=== PATIENT | male | born 1970 | race Caucasian/White ===

== ENCOUNTER 2019-10-19 06:05 | Day surgery (SDC) | payer OTHER ==
[2019-10-10 09:52] VITALS: BMI 33.1
[2019-10-19] MEDS ORDERED: oxyCODONE HCL 10 MG SUSTAINED ACTING TABLET PO ONE (06:25)
[2019-10-19] MEDS ORDERED: CEFAZOLIN 2 GM in DEXTROSE 5%-WATER - 50 ML IVPB ONE (06:25)
[2019-10-19] MEDS ORDERED: TRANEXAMIC ACID 1000 MG/10 ML VIAL IVPUSH ONE ×2 (06:25→11:55)
[2019-10-19] MEDS ORDERED: BUPIVICAINE 0.25%/MORPH PF/KETOROLAC - 51ML DISP.SYRINGE IA ONE ×3 (06:25→11:56)
[2019-10-19] MEDS ORDERED: CELECOXIB 200 MG CAPSULE PO ONE (06:25)
[2019-10-19] MEDS ORDERED: GABAPENTIN 300 MG CAPSULE PO ONE (06:25)
[2019-10-19] MEDS ORDERED: PANTOPRAZOLE 40 MG TABLET PO ONE (06:30)
[2019-10-19] MEDS ORDERED: MIDAZOLAM HCL 2 MG/2 ML SINGLE DOSE VIAL ONE ×2 (06:53→08:39)
[2019-10-19] MEDS ORDERED: BUPIVACAINE HCL/PF 0.5% (5 MG/ML) 30 ML VIAL IJ ONE (06:53)
[2019-10-19] MEDS ORDERED: PROPOFOL 20 ML ONE ×5 (07:09→11:40)
[2019-10-19] MEDS ORDERED: SUCCINYLCHOLINE CHLORIDE 200 MG/10 ML SYRINGE ONE (07:10)
[2019-10-19] MEDS ORDERED: TRANEXAMIC ACID 1000 MG/10 ML VIAL ONE (07:17)
[2019-10-19] MEDS ORDERED: ceFAZolin SODIUM 1 GM VIAL ONE ×2 (07:17→11:12)
[2019-10-19] MEDS ORDERED: VANCOMYCIN 1,000 MG VIAL (RESTRICTED TO ID ONLY) ONE (07:17)
--- NOTE | 2019-10-19 07:22 | HP ---
Admitting History and Physical - Admission Chief Complaint: right knee osteoarthritis x years History of Present Illness: 48 year old male presents in regard to their right knee. Long-standing history of right knee osteoarthritis. Patient complains of pain - which he locates medially, limited range of motion, difficulty ambulating, and difficulty with activities of daily living. Patient has failed conservative treatment options including PO medications, activity modification, injections, and exercise programs. Radiographs revealed severe osteoarthritis of the right knee joint, along the medial compartment, with good preservation of the lateral and patellofemoral compartments. As the patient has failed all conservative treatment measures, the patient chose to proceed with surgical intervention, right partial knee medial compartment arthroplasty, MAKOplasty. History Source: Patient - Past Medical History [employer] TECHNICIAN: Yes: Migraine (Ocular) Gastrointestinal: Yes: GERD, Peptic Ulcer Disease Psych: Yes: Anxiety Musculoskeletal: Yes: Osteoarthritis - Past Surgical History Additional Past Surgical History: gastric bypass ([place]) 2003 gastroscopy 03/09/2014 left knee arthroscopy 10/16/2015 - Smoking History Smoking history: Never smoked Have you smoked in the past 12 months: No Home Medications - Allergies Allergies/Adverse Reactions: Allergies Allergy/AdvReac Type Severity Reaction Status Date / Time shrimp Allergy Severe Swelling Verified 10/10/19 09:35 - Home Medications Home Medications: Ambulatory Orders Desvenlafaxine Succinate [Pristiq] 50 mg PO DAILY 10/10/19 Diclofenac Sodium 75 mg PO BID 10/10/19 Melatonin 5 mg PO HS 10/10/19 clonazePAM [Klonopin -] 0.5 mg PO HS 10/10/19 Review of Systems - Review of Systems Musculoskeletal: reports: Decreased ROM (right knee), Joint Pain (right knee), Joint Swelling (right knee) Physical Examination Vital Signs: Vital Signs Temperature 98.2 F 10/19/19 06:33 Pulse Rate 80 10/19/19 06:33 Respiratory Rate 18 10/19/19 06:33 Blood Pressure 146/82 10/19/19 06:33 O2 Sat by Pulse Oximetry (%) 98 10/19/19 06:33 Constitutional: Yes: Well Nourished, No Distress Eyes: Yes: Conjunctiva Clear HENT: Yes: Atraumatic Neck: Yes: Supple Cardiovascular: Yes: Regular Rate and Rhythm Respiratory: Yes: Regular Gastrointestinal: Yes: Soft ...Rectal Exam: Yes: Deferred Musculoskeletal: Yes: Joint Stiffness (right), Joint Swelling (right) Assessment/Plan 48 year old male presents in regard to their right knee. Long-standing history of right knee osteoarthritis. Patient complains of pain - which he locates medially, limited range of motion, difficulty ambulating, and difficulty with activities of daily living. Patient has failed conservative treatment options including PO medications, activity modification, injections, and exercise programs. Radiographs revealed severe osteoarthritis of the right knee joint, along the medial compartment, with good preservation of the lateral and patellofemoral compartments. As the patient has failed all conservative treatment measures, the patient chose to proceed with surgical intervention, right partial knee medial compartment arthroplasty, MAKOplasty. Pros, cons, risks, benefits, and alternatives of a right partial knee medial compartment arthroplasty MAKOplasty were discussed with the patient at length. Patient confirms their understanding and consents to proceed with a right partial knee medial compartment arthroplasty MAKOplasty.
[2019-10-19] MEDS ORDERED: VANCOMYCIN 1,000 MG VIAL (RESTRICTED TO ID ONLY) IVPB ONE (11:42)
[2019-10-19] MEDS ORDERED: ONDANSETRON 4 MG/2 ML VIAL IVPUSH PRN ×2 (12:31→12:42)
[2019-10-19] MEDS ORDERED: oxyCODONE HCL 5 MG TABLET PO PRN (12:31)
[2019-10-19] MEDS ORDERED: ACETAMINOPHEN 1000 MG/100 ML VIAL (NON FORMULARY) IVPB ONE (12:41)
[2019-10-19] MEDS ORDERED: DEXAMETHASONE SOD PHOSPHATE 10 MG/1 ML VIAL IVPB ONE (12:41)
[2019-10-19] MEDS ORDERED: MAG HYDROX/AL HYDROX/SIMETH 30 ML UNIT-DOSE CUP PO PRN (12:42)
[2019-10-19] MEDS ORDERED: LACTATED RINGERS SOLUTION 1,000 ML IV SCH (12:45)
[2019-10-19] MEDS: KETOROLAC TROMETHAMINE 30 MG/1 ML VIAL IVPUSH SCH ×2 (12:47→17:53)
--- NOTE | 2019-10-19 12:47 | OP ---
Operative Note - Note: Operative Date: 10/19/19 Pre-Operative Diagnosis: right knee OA Operation: Right SMILEY medial partial knee replacement Post-Operative Diagnosis: Same as Pre-op Surgeon: David Muir Air Bag Builder: Shanna Garcia Anesthesia: Spinal Estimated Blood Loss (mls): 150
[2019-10-19] MEDS: traMADol HCL 50 MG TABLET PO SCH ×2 (12:48→17:54)
--- NOTE | 2019-10-19 13:22 | SPEC ---
DATE OF OPERATION: 10/19/2019 PREOPERATIVE DIAGNOSIS: Right knee medial compartment osteoarthritis. POSTOPERATIVE DIAGNOSIS: Right knee medial compartment osteoarthritis. PROCEDURE: Right knee SMILEY plasty medial unicompartmental knee replacement. ATTENDING SURGEON: Ethan Powell MD [employer] WEB DEVELOPER: ASH Jasso ANESTHESIA: Spinal plus sedation. ESTIMATED BLOOD LOSS: 150 mL. COMPLICATIONS: None. DISPOSITION: The patient was transferred to the PACU in stable condition. IMPLANTS USED: SMILEY size 6 femoral and tibial components, 8-mm polyethylene component. INDICATIONS: This is a 48-year-old male who presented to the office complaining of severe right knee pain. He is a longtime patient of the practice and had previously undergone arthroscopic surgery on this knee. Over the years he has developed worsening arthritis and has been treated nonoperatively with multiple modalities such as injections, medications, and physical therapy. He ultimately failed nonoperative treatment and continued to have severe pain and ambulatory dysfunction. He was therefore indicated for a partial knee replacement. The patient stated that 100% of his pain was located in the medial compartment of the knee. He had zero pain in the lateral and patellofemoral compartments. Therefore, we discussed medial unicompartmental knee replacement, and the patient wished to proceed with this surgery. The risks, benefits, and alternatives of the procedure were explained to the patient, and he elected to proceed. DESCRIPTION OF PROCEDURE: On the day of surgery, the patient was seen and examined by Dr. Powell and diagnosed with isolated medial compartment osteoarthritis. The knee pain was localized to the medial joint line and there were no complaints of pain in other areas of the knee. Because of failure of initial conservative treatment, the patient was indicated for a partial knee replacement. The risks, benefits and alternatives of the procedure were explained in great detail and the patient elected to proceed with surgery. These risks included, but are not limited to, anesthesia risks, scarring, instability, stiffness, infection, pulmonary embolus, deep vein thrombosis, intraoperative fracture, intraoperative neurovascular injury, problems with wound healing, failed procedure, persistent pain, nerve injury, possibility of lower limb numbness and weakness, the need for possible subsequent salvage surgeries, persistent limp, disability and . On the day of surgery the patient was taken to the operating room and placed on the OR table. Spinal anesthesia was administered by the anesthesiologist. The patient was then positioned supine on the table and all bony prominences were padded. A nonsterile tourniquet was placed on the proximal thigh of the operative leg. The knee was then prepped and draped in the usual sterile fashion and intravenous antibiotics were given for infection prophylaxis. A surgical time out was then performed with the team and the patient's identify, procedure, side, availability of implants and the administration of antibiotics was confirmed. With the knee flexed, an 8 cm incision was made just slightly medial to the midline and carried down through the subcutaneous fat to the underlying retinaculum. Electrocautery was used to achieve hemostasis. A limited medial parapatellar arthrotomy was performed. This was followed by a subperiosteal dissection of the tissue off the proximal medial tibia. A portion of fat pad was removed from under the patellar tendon to improve visualization and a small portion of fat was excised off the distal supracondylar femur. The knee was then flexed further and the anterior horn of the medial meniscus was released. Grade 4 changes were noted diffusely throughout the medial compartment. The lateral compartment appeared to be in good condition. Femoral and tibial checkpoints were then placed in the appropriate location using a mallet. Two parallel bicortical self-drilling pins were placed in the proximal tibia after making stab incisions and bluntly dissecting down to bone. These were positioned approximately 10 cm distal to the tibial tubercle. Two pins were then placed in the proximal femur using the same technique. These were located approximately 10 cm proximal to the superior pole of the patella. The Arrively navigation arrays were then attached to both the femoral and tibial pins and the lower extremity was then registered to the robotic navigation device using various joint movements, as well as inputting approximately 50 checkpoints. The knee was then taken through a full range of motion with a corrective valgus force applied. Alignment in varus/valgus was measured at 0, 30, 60, 90 and 120 degrees of flexion to determine soft tissue balance in all of these positions. The navigation device showed appropriate tracking of the virtual components on the screen, as well as a graphic representation of the soft tissue balance. The components were repositioned virtually using the software until optimal soft tissue balance was achieved. Once this was accomplished, the final plan was saved and sent to the robot. Retractors were then placed around the distal femur. The robot was brought into the sterile field and registered with the navigation device. The robotic arm with a skyler was then used to remove the appropriate amount of bone from the femur and tibia as per the saved software plan. The knee was then irrigated. Trial components were placed and the knee was taken through a full range of motion to assess soft tissue balance and alignment. The tracking and range of motion were found to be excellent and the soft tissue balance was optimal and according to plan. All trial components were then removed and an Esmarch bandage was used to exsanguinate the leg. The tourniquet was inflated in preparation for cementing. All bony surfaces were cleaned with pulsatile lavage and dried. Bone cement was then prepared on the back table and final components were cemented in place in the usual fashion. Extruded cement was removed. Once the cement had hardened, the knee was taken through a full range of motion to assess stability, balance and patellar tracking. These were found to be optimal. The trial polyethylene was exchanged for a final implant. Medial and inferior osteophytes were debrided off the patella (patelloplasty). The navigation arrays and Fatuma pins were removed from the femur and tibia. All wounds were then thoroughly irrigated with normal saline. A periarticular injection was used to locally infiltrate the capsular tissues surrounding the implant and prosthesis. A 1 Vicryl and 0 V-Bee 180 barbed sutures were used to close the arthrotomy. 2-0 Vicryl sutures were used in the subcutaneous tissues. The skin was closed using both 3-0 V-Bee 90 suture in a running subcuticular fashion and Dermabond skin adhesive. 4-0 undyed Vicryl and Dermabond skin adhesive was used to close the stab incisions made for the navigation pins. Once this was completed, sterile Aquacel dressings were applied to each incision site. A compressive dressing was applied. The tourniquet was then deflated and the patient was awakened and went to the PACU in stable condition. After final implants were placed, a 3-minute dilute Betadine soak was performed. Following this, the wound was thoroughly irrigated with normal saline via pulsatile lavage, and wound closure was begun. ETHAN POWELL M.D. CELESTINO/[id number]
[2019-10-19] MEDS: oxyCODONE HCL 5 MG TABLET PO PRN ×2 (15:07→19:42)
[2019-10-19] MEDS: ACETAMINOPHEN 325 MG TABLET (FP) PO SCH (17:54)
[2019-10-19] MEDS: CEFAZOLIN 2 GM/D5W 2 GM/50 ML ML IVPB SCH (17:54)
[2019-10-19] MEDS: SENNOSIDES/DOCUSATE COMBO (SENNA PLUS) TABLET (UD) PO SCH (21:14)
[2019-10-19] MEDS: CELECOXIB 200 MG CAPSULE PO SCH (21:14)
[2019-10-19] MEDS: GABAPENTIN 300 MG CAPSULE PO SCH (21:14)
[2019-10-19] MEDS: ASCORBIC ACID 500 MG TABLET (FP) PO SCH (21:15)
[2019-10-19] MEDS: oxyCODONE HCL 10 MG SUSTAINED ACTING TABLET PO SCH (21:15)
[2019-10-19] MEDS ORDERED: MELATONIN 5 MG TABLETS PO SCH (22:00)
[2019-10-19] MEDS ORDERED: clonazePAM 0.5 MG TABLET PO SCH (22:00)
[2019-10-20] MEDS: KETOROLAC TROMETHAMINE 30 MG/1 ML VIAL IVPUSH SCH ×2 (00:03→06:21)
[2019-10-20] MEDS: ACETAMINOPHEN 325 MG TABLET (FP) PO SCH ×3 (00:04→11:59)
[2019-10-20] MEDS: traMADol HCL 50 MG TABLET PO SCH ×3 (00:04→12:00)
[2019-10-20] MEDS: CEFAZOLIN 2 GM/D5W 2 GM/50 ML ML IVPB SCH (01:46)
[2019-10-20 07:45] LABS: HEMATOCRIT 33.4 % (35.4-49); HEMOGLOBIN 10.3 GM/dl (11.7-16.9); MCH 20.2 pg (25.7-33.7); MCHC 30.7 g/dl (32.0-35.9); MEAN CELL VOLUME 65.7 fl (80-96); PLATELET COUNT 215 K/MM3 (134-434); RBC 5.09 M/mm3 (4.00-5.60); RDW 18.2 % (11.9-15.9); WHITE BLOOD COUNT 5.5 K/mm3 (4.0-10.8)
[2019-10-20 07:48] LABS: CALCIUM 8.3 mg/dl (8.5-10); CREATININE 0.8 mg/dl (0.55-1.3); POTASSIUM 4.1 mmol/L (3.5-5.1)
[2019-10-20] MEDS ORDERED: ASPIRIN 325 MG TABLET PO SCH (08:00)
[2019-10-20] MEDS: oxyCODONE HCL 10 MG SUSTAINED ACTING TABLET PO SCH (08:59)
[2019-10-20] MEDS: ASCORBIC ACID 500 MG TABLET (FP) PO SCH (09:00)
[2019-10-20] MEDS: CELECOXIB 200 MG CAPSULE PO SCH (09:00)
[2019-10-20] MEDS: SENNOSIDES/DOCUSATE COMBO (SENNA PLUS) TABLET (UD) PO SCH (09:01)
[2019-10-20] MEDS: GABAPENTIN 300 MG CAPSULE PO SCH (09:01)
[2019-10-20 09:17] VITALS: BP 137/61; PULSE 78; TEMP 98.7
[2019-10-20] MEDS ORDERED: PATIENT'S OWN MEDICATION (NON-FORMULARY) (Desvenlafaxine Succinate [Pristiq] 50 MG) PO SCH (10:00)
[2019-10-20] MEDS ORDERED: MULTIVITAMINS (DAILY MVI) TABLET (FP) PO SCH (10:00)
[2019-10-20] MEDS ORDERED: PANTOPRAZOLE 40 MG TABLET PO SCH (10:00)
--- NOTE | 2019-10-20 10:44 | PN ---
Progress Note (short form) - Note Progress Note: POD1 s/p right partial knee replacement. Doing well today, no c/o, no anesthetic issues/complications noted
--- NOTE | 2019-10-20 11:20 | DS ---
Physical Examination Vital Signs: Vital Signs Temperature 98.7 F 10/20/19 09:00 Pulse Rate 78 10/20/19 09:00 Respiratory Rate 18 10/20/19 09:00 Blood Pressure 137/61 10/20/19 09:00 O2 Sat by Pulse Oximetry (%) 100 10/20/19 09:00 Labs: CBC, BMP 10/20/19 07:09 10/20/19 07:09 Discharge Summary Problems reviewed: Yes Reason For Visit: OSTEOARTHRITIS RT KNEE Current Active Problems Osteoarthritis of right knee (Acute) Procedures: Principal: right SMILEY partial knee replacement Hospital Course: Admitted for elective surgery. Procedure performed without complications. Pt received postoperative antibiotic prophylaxis and DVT ppx. Ambulated with physical therapy. Stable for discharge home with outpatient followup. Condition: Stable - Instructions Diet, Activity, Other Instructions: Dr. Muir - Knee Replacement Instructions Keep the Aquacel dressing on until removed by Dr. Muir in 2 weeks - it is antibacterial and waterproof and you can shower with it on. Call the office for a follow-up appointment with Dr. Muir in 2 weeks. [phone] Take one Aspirin 325mg daily for 6 weeks to prevent blood clots in your legs. Take one Pantoprazole 40mg daily for 6 weeks to protect against heartburn and ulcers. Take Cephalexin (antibiotic) 3x/day for 10 days to help prevent skin infection. Take Diclofenac 75mg twice daily for 30 days to reduce swelling and inflammation. Take a multivitamin, stool softener, and extra Vitamin C supplement daily. For pain: *Mild pain (1-3/10): Take 1 Tramadol tablet every 4 hours as needed. Moderate pain (4-6/10): Take 1 Tramadol tablet and 1 Percocet tablet every 4 hours as needed. Severe pain (7-10/10): Take 1 Tramadol tablet and 2 Percocet tablets every 4 hours as needed. Activity: You can put as much weight on the operative leg as you want. Right after you get home, there will be a physical therapist coming to your house to help you walk around and bend/straighten your knee. After your follow-up appointment, you will be sent for more intensive outpatient physical therapy which will include machines and equipment that the home therapist cannot bring to your house. Always use a walker or cane for balance and to prevent falls. Expect to see swelling/bruising from the operative site all the way down to your toes. Wear the compression stocking on the operative side during the day to minimize how much swelling there is in your foot/ankle. Don't wear the stocking at night. You don't have to wear a stocking on the other side. Disposition: [facility]/HOME HEALTH CARE - Home Medications Comprehensive Discharge Medication List: Ambulatory Orders Melatonin 5 mg PO HS 10/10/19 Ascorbic Acid [Vitamin C -] 500 mg PO BID tablet 10/20/19 Aspirin [ASA -] 325 mg PO DAILY@0800 tablet 10/20/19 Aspirin [Aspirin EC] 325 mg PO DAILY #42 tablet. 10/20/19 Aspirin [Aspirin EC] 325 mg PO DAILY #42 tablet. 10/20/19 Celecoxib [CeleBREX -] 200 mg PO BID #60 capsule 10/20/19 Cephalexin Monohydrate [Keflex -] 500 mg PO TID #30 capsule 10/20/19 Cephalexin Monohydrate [Keflex -] 500 mg PO TID #30 capsule 10/20/19 Desvenlafaxine Succinate [Pristiq] 50 mg PO DAILY #1 tab 10/20/19 Diclofenac Sodium 75 mg PO BID #60 tab 10/20/19 Multivitamins [Multivit ([facility] Form[facility])] 1 tab PO DAILY tab 10/20/19 Oxycodone HCl/Acetaminophen [Percocet 5-325 mg Tablet] 1 - 2 tab PO Q4H PRN #60 tablet MDD 10 10/20/19 Oxycodone HCl/Acetaminophen [Percocet 5-325 mg Tablet] 1 - 2 tab PO Q4H PRN #60 tablet MDD 10 10/20/19 Pantoprazole Sodium [Protonix -] 40 mg PO DAILY #40 tablet.ec 10/20/19 Pantoprazole Sodium [Protonix -] 40 mg PO DAILY #40 tablet.ec 10/20/19 Sennosides/Docusate Sodium [Pericolace -] 2 tablet PO BID tablet 10/20/19 clonazePAM [Klonopin -] 0.5 mg PO HS #1 tab 10/20/19 traMADol HCL [Ultram -] 50 mg PO Q4H PRN #42 tablet MDD 6 10/20/19 traMADol HCL [Ultram -] 50 mg PO Q4H PRN #42 tablet MDD 6 10/20/19
== END 2019-10-20 13:30 | disposition home health service (06) ==
LOC: FASUSAT 06:05 → MERGE 06:05 → EDSTATUS 08:00 → FM/S 14:14 → FASUSAT 10-20 13:30
PROVIDERS: ATTEND Student in an Organized Health Care Education/Training Program
PROC: 8E0YXBZ Computer Assisted Procedure of Lower Extremity (ICD-10-PCS; 2019-10-19)
PROC: 8E0Y0CZ Robotic Assisted Procedure of Lower Extremity, Open Approach (ICD-10-PCS; 2019-10-19)
PROC: 0SRC0L9 Replacement of Right Knee Joint with Medial Unicondylar Synthetic Substitute, Cemented, Open Approach (ICD-10-PCS; principal; 2019-10-19 08:59)
DX: M17.11 Unilateral primary osteoarthritis, right knee (principal)
CPT/HCPCS: 20985; 27446; C1776; S2900; 36415; 73560-TC-RT-FY; 80048; 85027; 94760; 97010-GP; 97116-GP; 97162-GP; J0131